=== PATIENT | female | born 1985 | race Caucasian/White ===

== ENCOUNTER 2019-07-16 07:51 | Emergency (ER) | payer BC ==
--- NOTE | 2019-07-16 09:17 | RADIOLOGY REPORT (SQ) ---
EXAM DESCRIPTION: CHEST SINGLE VIEW IMAGES COMPLETED DATE/TIME: 07/16/2019 9:00 am REASON FOR STUDY: productive cough COMPARISON: 03/09/2011 EXAM PARAMETERS: NUMBER OF VIEWS: One view. TECHNIQUE: Single frontal radiographic view of the chest acquired. RADIATION DOSE: NA LIMITATIONS: None. FINDINGS: LUNGS AND PLEURA: Dense consolidation in the right lower lobe. Most likely focal pneumoni a. Lung angel are otherwise clear. No pneumothorax or effusion. MEDIASTINUM AND HILAR STRUCTURES: No masses. Contour normal. HEART AND VASCULAR STRUCTURES: Heart normal in size. Normal vasculature. BONES: No acute findings. HARDWARE: None in the chest. OTHER: No other significant finding. IMPRESSION: Dense consolidation in the right lower lobe with a rounded configuration most likely pne umonia. TECHNICAL DOCUMENTATION: JOB ID: [id number] 2010 [employer]- All Rights Reserved Reading location - IP/workstation name: [email or web address]
[2019-07-16 09:20] LABS: HEMATOCRIT 42.1 % (36.0-47.0); HEMOGLOBIN 14.8 g/dL (12.0-15.5); MEAN CORPUSCULAR HEMOGLOBIN 32.5 pg (27.0-33.4); MEAN CORPUSCULAR HGB CONC 35.1 g/dL (32.0-36.0); MEAN CORPUSCULAR VOLUME 93 fl (80-97); PLATELET COUNT 430 10^3/uL (150-450); RED BLOOD COUNT 4.55 10^6/uL (3.72-5.28); RED CELL DISTRIBUTION WIDTH 13.6 % (11.5-14.0); WHITE BLOOD COUNT 8.4 10^3/uL (4.0-10.5)
[2019-07-16 09:21] LABS: VENOUS BLOOD BASE EXCESS 7.1 mmol/L; VENOUS BLOOD PCO2 41.1 mmHg (35-63); VENOUS BLOOD PH 7.5 (7.30-7.42)
[2019-07-16] MEDS ORDERED: NORMAL SALINE IV ONE (09:25)
[2019-07-16] MEDS ORDERED: ACETAMINOPHEN 325 MG TABLET PO ONE ×2 (09:25→15:44)
[2019-07-16] MEDS ORDERED: CEFTRIAXONE 1 GM/D5W RTU 1 GM/50 ML RTUPB IV ONE (09:25)
[2019-07-16] MEDS ORDERED: AZITHROMYCIN INJ 500 MG VIAL IV ONE (09:25)
--- NOTE | 2019-07-16 09:27 | ER Document Report ---
ED Respiratory Problem - General Chief Complaint: Cough Stated Complaint: COUGH,CONGESTION Time Seen by Provider: 07/16/19 09:01 Primary Care Provider: [facility] [Provider Group] - Follow up as needed [facility] [Provider Group] - Follow up as needed [facility] [Provider Group] - Follow up tomorrow Mode of Arrival: Ambulatory Information source: Patient Notes: Patient presents with cough for the past 10 days. Patient states cough is been productive with green sputum. Patient states that she had a fever a week ago but none since then. Patient states that when she coughs she has sharp pain to the right lower abdomen. Patient does report recent sick contacts in the household. TRAVEL OUTSIDE OF THE [place] IN LAST 30 DAYS: No - HPI Patient complains to provider of: Cough. No: Chest pain Onset: Other - 10 days Duration: Continuous Pain Level: 4 Context: denies: Hx asthma, Recent immobilization, Recent surgery, Smoker Sputum amount: Small Sputum color: Green Associated symptoms: Congestion, Cough. denies: Bloody cough, Chest pain/discomfort, Chills, Fever, Short of breath, Wheezing Similar symptoms previously: No Recently seen / treated by doctor: No - Related Data Allergies/Adverse Reactions: Influenza Virus Vaccines [Influenza Virus Vaccine] Allergy (Severe, Verified 01/03/11 08:04) sulfamethoxazole [From Bactrim DS] Allergy (Severe, Verified 01/03/11 08:04) rash trimethoprim [From Bactrim DS] Allergy (Severe, Verified 01/03/11 08:04) rash Past Medical History - General Information source: Patient - Social History Smoking Status: Never Smoker Chew tobacco use (# tins/day): No Frequency of alcohol use: None Drug Abuse: None Occupation: [employer] Lives with: Family Family History: Reviewed & Not Pertinent Patient has homicidal ideation: No - Past Medical History Cardiac Medical History: Reports: 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 Denies: Hx Pacemaker - Immunizations Hx Diphtheria, Pertussis, Tetanus Vaccination: Yes - < 5 years ago Review of Systems - Review of Systems Constitutional: Fever EENT: Nose congestion Cardiovascular: No symptoms reported. denies: Chest pain Respiratory: Cough, Sputum. denies: Hemoptysis, Wheezing Gastrointestinal: Abdominal pain - With coughing. denies: Nausea, Vomiting Genitourinary: No symptoms reported. denies: Dysuria Female Genitourinary: No symptoms reported Musculoskeletal: No symptoms reported Skin: No symptoms reported Hematologic/Lymphatic: No symptoms reported Neurological/Psychological: No symptoms reported Physical Exam - Vital signs Vitals: Temp Pulse Resp BP Pulse Ox 99.4 F 134 H 20 140/85 H 95 07/16/19 08:07 07/16/19 08:07 07/16/19 08:07 07/16/19 08:07 07/16/19 08:07 - General General appearance: Appears well, Alert In distress: None - HEENT Head: Normocephalic, Atraumatic Eyes: Normal Conjunctiva: Normal Nasal: Clear rhinorrhea Mouth/Lips: Normal Mucous membranes: Normal Pharynx: Normal Neck: Normal, Supple. No: Lymphadenopathy - Respiratory Respiratory status: No respiratory distress Chest status: Pain with cough - To right lower abdomen Breath sounds: Productive cough, Rales - RLL, Rhonchi Chest palpation: Normal - Cardiovascular Rhythm: Tachycardia Heart sounds: S1 appreciated, S2 appreciated Murmur: No - Abdominal Inspection: Normal Distension: No distension Bowel sounds: Normal Tenderness: Tender - RLQ. No: Clemente's sign Organomegaly: No organomegaly - Back Back: Normal, Nontender - Extremities General upper extremity: Normal inspection, Normal strength General lower extremity: Normal inspection, Normal strength - Neurological Neuro grossly intact: Yes Cognition: Normal Fifield Coma Scale Eye Opening: Spontaneous Celine Coma Scale Verbal: Oriented Celine Coma Scale Motor: Obeys Commands Fifield Coma Scale Total: 15 - Psychological Associated symptoms: Normal affect, Normal mood - Skin Skin Temperature: Warm Skin Moisture: Dry Skin Color: Normal Course - Re-evaluation Re-evalutation: 07/16/19 12:50 Patient's respirations unlabored, patient does continue with cough. Patient reports that cough makes her abdomen hurt. Patient does have a right lower lobe pneumonia. Patient no longer tachycardic and is not hypoxic on room air. CT scan reviewed, no concern for any acute appendicitis. Suspected that abdominal pain is a result of muscle strain from coughing. Will send patient for COVID testing. Consulted with Dr. Canales who advises placing patient on Levaquin. Reviewed patient's EKG with Dr. Canales, no additional testing advised. The patient was evaluated during the global Covid 19 pandemic, and that diagnosis was suspected/considered upon their initial presentation. Their evaluation, treatment and testing was consistent with current guidelines for patients who present with complaints or symptoms that may be related to Covid 19. Patient presents with upper respiratory symptoms worrisome for possible Covid 19. Patient does not have emergency worrying symptoms such as difficulty breathing, shortness of breath, chest pain, pressure, confusion or cyanosis. Patient appears suitable for discharge as vital signs are stable and patient is nontoxic in appearance. Good return precautions have been discussed with patient, patient verbalized understanding and is agreeable with discharge plan of care at this time. - Vital Signs Vital signs: Temp Pulse Resp BP Pulse Ox 100.4 F 134 H 27 H 141/83 H 96 07/16/19 15:45 07/16/19 08:07 07/16/19 15:01 07/16/19 15:01 07/16/19 15:01 - Laboratory Result Diagrams: 07/16/19 09:00 07/16/19 09:00 Laboratory results interpreted by me: 07/16/19 07/16/19 07/16/19 09:00 09:00 09:00 Seg Neuts % (Manual) 81 H Band Neutrophils % 1 L Lymphocytes % (Manual) 6 L VBG pH 7.50 H Sodium 136.8 L Chloride 97 L Carbon Dioxide 32 H BUN 5 L Glucose 129 H AST 67 H ALT 86 H Alkaline Phosphatase 127 H 07/16/19 12:50 Labs- Entire Visit 07/16/19 07/16/19 07/16/19 09:00 09:00 09:00 WBC 8.4 RBC 4.55 Hgb 14.8 Hct 42.1 MCV 93 MCH 32.5 MCHC 35.1 RDW 13.6 Plt Count 430 Lymph % (Auto) Not Reportable [place] % (Auto) Not Reportable Eos % (Auto) Not Reportable Baso % (Auto) Not Reportable Absolute Neuts (auto) Not Reportable Absolute Lymphs (auto) Not Reportable Absolute Monos (auto) Not Reportable Absolute Eos (auto) Not Reportable Absolute Basos (auto) Not Reportable Total Counted 100 Seg Neutrophils % Not Reportable Seg Neuts % (Manual) 81 H Band Neutrophils % 1 L Lymphocytes % (Manual) 6 L Monocytes % (Manual) 11 Eosinophils % (Manual) 0 Basophils % (Manual) 0 Metamyelocytes % 1 Abs Neuts (Manual) 7.0 Abs Lymphs (Manual) 0.5 Abs Monocytes (Manual) 0.9 Absolute Eos (Manual) 0.0 Abs Basophils (Manual) 0.0 Toxic Vacuolation PRESENT Large Platelets PRESENT Platelet Comment ADEQUATE RBC Morph Comment NORMO-CYTIC/CHROMIC PT 14.7 INR 1.15 VBG pH VBG pCO2 VBG HCO3 VBG Base Excess Sodium 136.8 L Potassium 3.8 Chloride 97 L Carbon Dioxide 32 H Anion Gap 8 BUN 5 L Creatinine 0.53 Est GFR ( Amer) > 60 Est GFR (MDRD) Non-Af > 60 Glucose 129 H Lactic Acid Calcium 8.9 Total Bilirubin 1.0 Direct Bilirubin 0.2 Neonat Total Bilirubin Not Reportable Neonat Direct Bilirubin Not Reportable Neonat Indirect Bili Not Reportable AST 67 H ALT 86 H Alkaline Phosphatase 127 H Total Protein 7.2 Albumin 3.5 Serum HCG, Qual 07/16/19 07/16/19 07/16/19 09:00 09:00 09:00 WBC RBC Hgb Hct MCV MCH MCHC RDW Plt Count Lymph % (Auto) [place] % (Auto) Eos % (Auto) Baso % (Auto) Absolute Neuts (auto) Absolute Lymphs (auto) Absolute Monos (auto) Absolute Eos (auto) Absolute Basos (auto) Total Counted Seg Neutrophils % Seg Neuts % (Manual) Band Neutrophils % Lymphocytes % (Manual) Monocytes % (Manual) Eosinophils % (Manual) Basophils % (Manual) Metamyelocytes % Abs Neuts (Manual) Abs Lymphs (Manual) Abs Monocytes (Manual) Absolute Eos (Manual) Abs Basophils (Manual) Toxic Vacuolation Large Platelets Platelet Comment RBC Morph Comment PT INR VBG pH 7.50 H VBG pCO2 41.1 VBG HCO3 31.0 VBG Base Excess 7.1 Sodium Potassium Chloride Carbon Dioxide Anion Gap BUN Creatinine Est GFR ( Amer) Est GFR (MDRD) Non-Af Glucose Lactic Acid 1.0 Calcium Total Bilirubin Direct Bilirubin Neonat Total Bilirubin Neonat Direct Bilirubin Neonat Indirect Bili AST ALT Alkaline Phosphatase Total Protein Albumin Serum HCG, Qual NEGATIVE - Diagnostic Test Radiology reviewed: Image reviewed, Reports reviewed Discharge - Discharge Clinical Impression: Pneumonia Qualifiers: Pneumonia type: due to unspecified organism Laterality: right Lung location: lower lobe of lung Qualified Code(s): J18.9 - Pneumonia, unspecified organism Abdominal pain Qualifiers: Abdominal location: right lower quadrant Qualified Code(s): R10.31 - Right lower quadrant pain Condition: Stable Disposition: HOME, SELF-CARE Instructions: Abdominal Pain ([facility]) Additional Instructions: Return immediately for any new or worsening symptoms: Worsening cough, shortness of breath, any new or concerning symptoms or lack of improvement Followup with a primary care provider, call tomorrow to make a followup appointment PNEUMONIA: Your examination indicates that you have pneumonia. This is an infection of the lung tissue, usually caused by bacteria or a virus. Symptoms include cough, fever, shaking chills, chest pain, shortness of breath, and coughing up bloody sputum. Treatment for bacterial pneumonia includes rest, antibiotics for 10 to 14 days, increasing your clear liquid intake, a cool mist humidifier at your bedside, and fever medication. Often, a repeat chest X-ray is performed in a few weeks--even if you feel better--to ascertain whether the infection has completely resolved and no underlying lung problem is present. You should call the physician if you develop persistent vomiting, high fever that does not respond to fever medication, increasing shortness of breath, confusion, or lethargy. Also, failure to improve within two to three days is an indication for re-examination. ROCEPHIN: You have been given an injection of an antibiotic called Rocephin (ceftriaxone). Sometimes the injection must be combined with antibiotic pills. For some infections, such as an uncomplicated ear infection, Rocephin provides all the antibiotic that's needed. The antibiotic will be in your body for about two days. For serious infections, we usually repeat doses of Rocephin daily. Side effects are very unusual following a shot. Women may develop vaginal yeast infections, and babies can get yeast (thrush) in the mouth following the u se of antibiotics. Contact your physician if you have symptoms with this medication. Allergy to this antibiotic can result in hives, wheezing, faintness, or itching. If symptoms of allergy occur, call the doctor at once. ANTIBIOTIC THERAPY: You have been given an antibiotic prescription. It's important that you take all the medication, unless instructed otherwise by your physician. Failure to complete the entire course can result in relapse of your condition. Common side effects of antibiotics include nausea, intestinal cramping, or diarrhea. Women may develop vaginal yeast infections, and babies can get yeast (thrush) in the mouth following the use of antibiotics. Contact your physician if you develop significant side effects from this medication. Allergy to this antibiotic can result in hives, wheezing, faintness, or itching. If symptoms of allergy occur, stop the medication and call the doctor. LEVOFLOXACIN: You have been given an antibacterial agent, levofloxacin (Levaquin). This medicine is not related to the penicillins, sulfas, cephalosporins, or tetracyclines. It is often given to patients who are allergic to these drugs. It has been chosen for you either because other drugs are not appropriate, or because of the nature of your problem. Levaquin should not be taken with antacids, as these can decrease its effectiveness. It can be taken without regard to meals. LEVAQUIN SHOULD NOT BE TAKEN BY CHILDREN, NURSING WOMEN, OR WOMEN. Although Levaquin is usually well-tolerated, common side effects can include nausea and diarrhea. Contact your doctor if you experience any unusual symptoms while on this medication, such as joint pain or swelling, shortness of breath, wheezing, faintness, or hives. USE OF ACETAMINOPHEN (Tylenol): Acetaminophen may be taken for pain relief or fever control. It's much sa ju[place] than aspirin, offering a wider range of "safe" dosages. It is safe during . Some brand names are Tylenol, Panadol, Datril, Anacin 3, Tempra, and Liquiprin. Acetaminophen can be repeated every four hours. The following are maximum recommended dosages: WEIGHT Dose Drops Elixir Chewable(80mg) (LBS.) drprs=droppers tsp=teaspoon 6 40 mg 0.4 ml (1/2) 6-11 80 mg 0.8 ml (full) tsp 1 tab 12-16 120 mg 1 1/2 drprs 3/4 tsp 1 1/2 tabs 17-23 160 mg 2 drprs 1 tsp 2 tabs 24-30 240 mg 3 drprs 1 1/2 tsp 3 tabs 30-35 320 mg 2 tsp 4 tabs 36-41 360 mg 2 1/4 tsp 4 1/2 tabs 42-47 400 mg 2 1/2 tsp 5 tabs 48-53 480 mg 3 tsp 6 tabs 54-59 520 mg 3 1/4 tsp 6 1/2 tabs 60-64 560 mg 3 1/2 tsp 7 tabs 65-70 600 mg 3 3/4 tsp 7 1/2 tabs 71-76 640 mg 4 tsp 8 tabs 77-82 720 mg 4 1/2 tsp 9 tabs 83-88 800 mg 5 tsp 10 tabs >89 pounds or adults 650 mg to 900 mg Acetaminophen can be repeated every four hours. Maximum dose not to exceed 4000 mg a day. These maximum recommended dosages are slightly higher than the dosages written on the product container, but these dosages are very safe and below the toxic dosage for acetaminophen. FOLLOW-UP CARE: If you have been referred to a physician for follow-up care, call the physicians office for an appointment as you were instructed or within the next two days. If you experience worsening or a significant change in your symptoms, notify the physician immediately or return to the Emergency Department at any time for re-evaluation. Prescriptions: Hydrocodone Bit/Homatropine [Hycodan Syrup 5-1.5 mg/ 5 ml Ud Cup] 5 ml PO ASDIR PRN #60 ml PRN Reason: Levofloxacin [Levaquin 750 mg Tablet] 750 mg PO DAILY #7 tablet Forms: Return to Work Referrals: [facility] [Provider Group] - Follow up as needed [facility] [Provider Group] - Follow up as needed [facility] [Provider Group] - Follow up tomorrow
[2019-07-16 09:30] LABS: INTERNATIONAL RATION (INR) 1.15; PROTHROMBIN TIME 14.7 SEC (11.4-15.4)
[2019-07-16] MEDS ORDERED: ONDANSETRON HCL INJ/PF 4 MG/2 ML SDV IV ONE (09:34)
[2019-07-16 09:39] LABS: ABSOLUTE LYMPHOCYTES# (MANUAL) 0.5 10^3/uL (0.5-4.7); ABSOLUTE MONOCYTES # (MANUAL) 0.9 10^3/uL (0.1-1.4); ALBUMIN 3.5 g/dL (3.5-5.0); ALKALINE PHOSPHATASE 127 U/L (38-126); ANION GAP 8 (5-19); ASPARTATE AMINO TRANSFERASE 67 U/L (14-36); BAND NEUTROPHILS % (MANUAL) 1 % (3-5); BASOPHILS % (MANUAL) 0 % (0-2); BILIRUBIN,DIRECT 0.2 mg/dL (0.0-0.4); BLOOD UREA NITROGEN 5 mg/dL (7-20); CALCIUM 8.9 mg/dL (8.4-10.2); CARBON DIOXIDE 32 mmol/L (22-30); CHLORIDE 97 mmol/L (98-107); EOSINOPHILS % (MANUAL) 0 % (0-6); GLUCOSE 129 mg/dL (75-110); LYMPHOCYTES % (MANUAL) 6 % (13-45); METAMYELOCYTES % (MANUAL) 1 % (0-1); MONOCYTES % (MANUAL) 11 % (3-13); POTASSIUM 3.8 mmol/L (3.6-5.0); SEGMENTED NEUTROPHILS % (MAN) 81 % (42-78); TOTAL CELLS COUNTED 100; TOTAL PROTEIN 7.2 g/dL (6.3-8.2)
[2019-07-16 09:40] LABS: PLATELET COMMENT ADEQUATE; PLATELET LARGE PRESENT; RBC MORPHOLOGY COMMENT NORMO-CYTIC/CHROMIC; TOXIC VACUOLATION PRESENT
[2019-07-16] MEDS ORDERED: BENZONATATE 100 MG CAPSULE PO ONE (10:06)
[2019-07-16] MEDS ORDERED: IPRATROPIUM/ALBUTEROL 0.5-2.5 MG/3 ML AMPUL NEB ONE (10:06)
[2019-07-16] MEDS ORDERED: FENTANYL CITRATE INJ/PF 100 MCG/2 ML AMPUL IV ONE (11:11)
--- NOTE | 2019-07-16 12:40 | RADIOLOGY REPORT (SQ) ---
EXAM DESCRIPTION: CT ABD/PELVIS NO ORAL OR IV IMAGES COMPLETED DATE/TIME: 07/16/2019 12:15 pm REASON FOR STUDY: RLQ pain COMPARISON: None. TECHNIQUE: CT scan of the abdomen and pelvis performed without intravenous or oral contrast. Images reviewed with lung, soft tissue, and bone windows. Reconstructed coronal and sagittal MPR images revi ewed. All images stored on PACS. All CT scanners at this facility use dose modulation, iterative reconstruction, and/or weight based d osing when appropriate to reduce radiation dose to as low as reasonably achievable (ALARA). [facility]: Dose Right [facility]: CareDose [facility]: Dose Right [facility]: Teradose 4D [facility]: Smart [employer] RADIATION DOSE: CT Rad equipment meets quality standard of care and radiation dose reduction techniq ues were employed. CTDIvol: 10.9 mGy. DLP: 674 mGy-cm.mGy. LIMITATIONS: None. FINDINGS: LOWER CHEST: Extensive right lower lobe airspace disease. Nodular infiltrate extends into the right upper lobe as well. This still most likely represents infectious process. NON-CONTRASTED LIVER, SPLEEN, ADRENALS: Evaluation limited by lack of IV contrast. No identified sign ificant masses. PANCREAS: No masses. No peripancreatic inflammatory changes. GALLBLADDER: No identified stones by CT criteria. No inflammatory changes to suggest cholecystitis. RIGHT KIDNEY AND URETER: No suspicious masses. Assessment limited by lack of IV contrast. No signif icant calcifications. No hydronephrosis or hydroureter. LEFT KIDNEY AND URETER: No suspicious masses. Assessment limited by lack of IV contrast. No signifi cant calcifications. No hydronephrosis or hydroureter. AORTA AND RETROPERITONEUM: No aneurysm. No retroperitoneal masses or adenopathy. BOWEL AND PERITONEAL CAVITY: No obvious masses or inflammatory changes. No free fluid. APPENDIX: Normal. PELVIS, BLADDER, AND ABDOMINAL WALL:IUD is in place. No free fluid. No adnexal masses. BONES: No significant findings. OTHER: No other significant finding. IMPRESSION: Extensive right lower lobe consolidation consistent with pneumonia. No acute findings i n the abdomen or pelvis. COMMENT: Quality ID # [id number]: Final reports with documentation of one or more dose reduction techniques (e.g., Automated exposure control, adjustment of the mA and/or kV according to patient size, use of iterative reconstruction technique) TECHNICAL DOCUMENTATION: JOB ID: [id number] 2010 [employer]- All Rights Reserved Reading location - IP/workstation name: [email or web address]
[2019-07-16] MEDS ORDERED: LIDOCAINE 1% INJ-PF (10 MG/ML) 30 ML SDV NEB ONE (12:57)
[2019-07-16 15:45] VITALS: BP 141/83
--- NOTE | 2019-07-16 22:27 | EKG REPORT ---
SEVERITY:- ABNORMAL ECG - SINUS TACHYCARDIA NONSPECIFIC T ABNORMALITIES, DIFFUSE LEADS : Confirmed by: Victorina Marie MD 16-Jul-2019 22:26:41
== END 2019-07-16 15:52 | disposition home or self-care (01) ==
LOC: ER 07:51
DX: J18.9 Pneumonia, unspecified organism (principal); R10.31 Right lower quadrant pain; R05 Cough; Z20.828 Contact with and (suspected) exposure to other viral communicable diseases; R09.81 Nasal congestion; J34.89 Other specified disorders of nose and nasal sinuses; R00.0 Tachycardia, unspecified; Z88.7 Allergy status to serum and vaccine; Z88.1 Allergy status to other antibiotic agents
CPT/HCPCS: 93005; 99284; 96361; 96365; 36415; 87040; 87070; 87205; 83605; 84703; 85025; 85610; 87635; 80053; 82803; 71045; 74176; 93010; J3010; J3490; J7030; J0456; J0696; J7620

== ENCOUNTER → 2019-08-15 | Outpatient (CLI) | payer BC ==
--- NOTE | 2019-08-15 10:09 | RADIOLOGY REPORT (SQ) ---
EXAM DESCRIPTION: CHEST PA/LATERAL IMAGES COMPLETED DATE/TIME: 08/15/2019 9:49 am REASON FOR STUDY: UNSPECIFIED BACTERIAL PNEUMONIA COMPARISON: AP view of the chest from 10/16/2019. EXAM PARAMETERS: NUMBER OF VIEWS: Two views. TECHNIQUE: PA and lateral views of the chest were obtained. RADIATION DOSE: NA. LIMITATIONS: None. FINDINGS: LUNGS AND PLEURA: The dense area of consolidation in the right lower lobe has resolved. T he residual ill-defined opacities that remain could represent atelectasis or scars. There is no siza ble pleural effusion or pneumothorax.. MEDIASTINUM AND HILAR STRUCTURES: No mediastinal or hilar contour abnormality. HEART AND VASCULAR STRUCTURES: The cardiac silhouette and pulmonary vasculature are within normal villafana its. BONES: No acute findings. HARDWARE: Implantable cardiac monitoring device and cholecystectomy clips. OTHER: Variant azygos fissure. IMPRESSION: The dense area of consolidation in the right lower lobe has resolved. The residual ill- defined opacities that remain could represent atelectasis or scars. TECHNICAL DOCUMENTATION: JOB ID: [id number] 2010 [employer]- All Rights Reserved Reading location - IP/workstation name: [email or web address]
[2019-08-15 10:53] LABS: ALBUMIN 4.2 g/dL (3.5-5.0); ALKALINE PHOSPHATASE 51 U/L (38-126); ANION GAP 6 (5-19); ASPARTATE AMINO TRANSFERASE 37 U/L (14-36); BILIRUBIN,TOTAL 0.6 mg/dL (0.2-1.3); BLOOD UREA NITROGEN 9 mg/dL (7-20); CALCIUM 9.3 mg/dL (8.4-10.2); CARBON DIOXIDE 24 mmol/L (22-30); CHLORIDE 107 mmol/L (98-107); GLUCOSE 112 mg/dL (75-110); POTASSIUM 4.5 mmol/L (3.6-5.0); TOTAL PROTEIN 7.1 g/dL (6.3-8.2)
== END ==
LOC: OD 09:06
PROVIDERS: ATTEND Family Medicine
DX: J15.9 Unspecified bacterial pneumonia (principal); Z13.1 Encounter for screening for diabetes mellitus
CPT/HCPCS: 36415; 71046; 80053